=== PATIENT | female | born 1975 | race Caucasian/White ===

== ENCOUNTER 2019-11-15 13:59 | Emergency (ER) | payer OTHER ==
[~2019-11-15] VITALS: Ht 162.6 cm; Wt 72.1 kg
[2019-11-15 14:12] VITALS: Ht 162.6 cm; Wt 72.1 kg
[2019-11-15 14:55] VITALS: BP 144/92
== END 2019-11-15 14:55 | disposition home or self-care (01) ==
LOC: ED 13:59
DX: R10.13 Epigastric pain (principal); R11.0 Nausea; Z88.2 Allergy status to sulfonamides

== ENCOUNTER 2019-11-15 22:38 | Emergency (ER) | payer OTHER ==
[~2019-11-15] VITALS: Ht 170.2 cm; Wt 68.0 kg
[2019-11-15 22:41] VITALS: Ht 170.2 cm; Wt 68.0 kg
[2019-11-16 01:48] VITALS: BP 112/89
== END 2019-11-16 01:48 | disposition home or self-care (01) ==
LOC: ED 22:38
DX: K13.0 Diseases of lips (principal); T78.40XA Allergy, unspecified, initial encounter; T78.3XXA Angioneurotic edema, initial encounter; X58.XXXA Exposure to other specified factors, initial encounter; Z88.2 Allergy status to sulfonamides; Z88.1 Allergy status to other antibiotic agents
CPT/HCPCS: J1100; Q0163